=== PATIENT | male | born 1955 | race African-American/Black ===

== ENCOUNTER → 2017-01-22 | Outpatient (CLI) | payer OTHER ==
[2016-03-21 14:28] VITALS: BP 143/86
[~2017-01-22] MED LIST: ACET325T9 PO; ALLO300T PO; AMLO10TA2 PO; ASPI-630 PO; CALC300T5 PO; CALC625T7 PO; DOCU100C28 PO; DOXE50CA PO; HUM100IN3 SQ; LAMO100T5 PO; MELO15TA23 PO; METF10002 PO; NEPA1.7D OP; NPH,100V SQ; PROP40TA PO; SERT100T PO; SIMV20TA3 PO; THIO10CA2 PO; THIO2CAP2 PO
[2017-01-22 10:56] LABS: BACTERIA,URINE 0 /HPF (0-FEW); BILIRUBIN,URINE NEG (NEG); CLARITY,URINE HAZY; COLOR,URINE YELLOW; GLUCOSE,URINE NEG (NEG); NITRITE,URINE NEG (NEG); RBC,URINE RARE /HPF (0-2); SQUAMOUS EPITHELIAL CELL,UR FEW /LPF; UROBILINOGEN,URINE 0.2 mg/dL (0.2 mg/dL); WBC,URINE OCC /HPF (0-4)
== END | disposition home or self-care (01) ==
LOC: EEVIPCON 10:32 → SPEC 10:32
PROVIDERS: ATTEND Nurse Practitioner Family
DX: N39.0 Urinary tract infection, site not specified (principal)
CPT/HCPCS: 81001